=== PATIENT | male | born 1995 | race Caucasian/White ===

== ENCOUNTER 2017-03-29 09:13 | Emergency (ER) | payer BC, OTHER ==
[~2017-03-29] VITALS: Ht 182.9 cm; Wt 72.5 kg
[2017-03-29 09:13] VITALS: Ht 182.9 cm; Wt 72.5 kg
--- NOTE | 2017-03-29 09:39 | ERD ---
ER Documentation Chief Complaint Date/Time DATE: 03/29/17 TIME: 09:36 Chief Complaint Complains of headache HPI 21 yo male comes emergency department with a headache for the past 6 days. Patient states that it is a throbbing headache, worse when he is standing, associated with lightheadedness at the top of his head, and he has had subjective fevers at home. Headache has been intermittent, it did improve 2 days ago, and returned today. He has been taking Advil, Excedrin as well as NyQuil for his pain. Patient denies any head injuries. He states he has had myalgias. No blurry vision, no nausea, vomiting, paresthesias, weakness. Denies neck stiffness. No vomiting, diarrhea or URI symptoms. He denies recent travel. ROS All systems reviewed and are negative except as per history of present illness. Medications Home Meds Active Scripts Tramadol HCl (Tramadol HCl) 50 Mg Tablet, 50 MG PO Q4 Y for PAIN, #20 TAB Prov:LAINEY SERRATO PA-C 03/29/17 Allergies Allergies: Coded Allergies: No Known Allergy (Unverified , 09/03/14) PMhx/Soc Medical and Surgical Hx: pt denies Medical Hx, pt denies Surgical Hx Hx Alcohol Use: No Hx Substance Use: No Hx Tobacco Use: No Physical Exam Vitals Vital Signs Date Time Temp Pulse Resp B/P Pulse Ox O2 Delivery O2 Flow Rate FiO2 03/29/17 09:13 93.0 85 20 125/90 97 Physical Exam General: Well-developed, well-nourished. The patient appears in no acute distress. HEENT: Head is normocephalic, atraumatic. No scleral icterus. Pupils are equal , round, and reactive. Oral mucous membranes are moist. No pharyngeal erythema. Neck: Supple. Nontender. Lungs: Clear to auscultation. Normal air movement. Heart: Regular rate and rhythm. S1 and S2 are normal. No murmurs, gallops, or rubs. Abdomen: Soft, nontender, nondistended. Bowel sounds are normoactive. Extremities: No clubbing or cyanosis. Normal pulses. Moving extremities x 4. No weakness. Neuro: M/S: Alert and oriented Face: EOMI, CN II-XII grossly intact Motor: Normal strength throughout Sensation: Normal sensation throughout Speech: Normal Cerebel: Normal coordination Normal gait Normal finger to nose DTR: 2+ and symmetric upper/lower extremities. Skin: Normal turgor. No rash or lesions. Result Diagram: 03/29/17 0947 03/29/17 0947 Results 24 hrs Laboratory Tests Test 03/29/17 09:47 03/29/17 11:10 White Blood Count 4.410^3/ul Red Blood Count 5.1310^6/ul Hemoglobin 15.8g/dl Hematocrit 44.3% Mean Corpuscular Volume 86.4fl Mean Corpuscular Hemoglobin 30.8pg Mean Corpuscular Hemoglobin Concent 35.7g/dl Red Cell Distribution Width 11.9% Platelet Count 28314^3/UL Mean Platelet Volume 10.2fl Neutrophils % % Lymphocytes % % Monocytes % % Neutrophils # 10^3/ul Lymphocytes # 10^3/ul Monocytes # 10^3/ul Sodium Level 141mmol/L Potassium Level 4.0mmol/L Chloride Level 104mmol/L Carbon Dioxide Level 29mmol/L Anion Gap 12 Blood Urea Nitrogen 14mg/dl Creatinine 1.05mg/dl Glucose Level 94mg/dl Calcium Level 9.3mg/dl Total Bilirubin 0.8mg/dl Direct Bilirubin 0.00mg/dl Indirect Bilirubin 0.8mg/dl Aspartate Amino Transf (AST/SGOT) 77IU/L Alanine Aminotransferase (ALT/SGPT) 77IU/L Alkaline Phosphatase 66IU/L Total Protein 8.4g/dl Albumin 5.1g/dl Globulin 3.30g/dl Albumin/Globulin Ratio 1.54 Urine Color YELLOW Urine Clarity CLEAR Urine pH 6.0 Urine Specific [place] 1.020 Urine Ketones NEGATIVE Urine Nitrite NEGATIVE Urine Bilirubin 1+ Urine Ictotest NEGATIVE Urine Urobilinogen 1.0 E.U./dL Urine Leukocyte Esterase NEGATIVE Urine Microscopic RBC 0-2/HPF Urine Microscopic WBC 0-2/HPF Urine Epithelial Cells RARE Urine Bacteria FEW Urine Mucus FEW Urine Hemoglobin TRACE Urine Glucose NEGATIVE% Urine Total Protein 1+ Current Medications Medications (Trade) Dose Ordered Sig/Sarah Route PRN Reason Start Time Stop Time Status Last Admin Dose Admin Tramadol HCl (Ultram) 50 mg ONCE ONCE PO 03/29/17 10:00 03/29/17 10:01 DC 03/29/17 09:45 Patient: JOSÉ LOVELL : 1995 Age: 21 Sex: M MR #: [id number] DOS: 03/29/17 1141 Ordering MD: LAINEY SERRATO PA-C Location: [facility] Room/Bed: PROCEDURE: US Abdomen. CLINICAL INDICATION: Elevated LFTs TECHNIQUE: Multiple real-time images were acquired of the patient's right upper quadrant abdomen and retroperitoneum utilizing a high resolution transducer. COMPARISON: None FINDINGS: The liver demonstrates normal echogenicity. The liver is normal in size and no focal solid lesions are seen. The liver measures 16.8 cm in length. The portal vein is patent with normal direction of flow. No intrahepatic biliary dilatation is seen. The gallbladder is contracted. No gallstones are identified within the gallbladder. There is no pericholecystic fluid or gallbladder wall thickening. The common bile duct measures 3 mm in maximal dimension. The visualized portions of the pancreas are unremarkable. The tail of the pancreas is not seen. No free fluid is identified. The right kidney is normal in size, and demonstrate normal echogenicity and cortical thickness. The right kidney measures 11.7 cm in long dimension. There is no evidence of hydronephrosis. There are no kidney stones. RPTAT: AA IMPRESSION: Contracted gallbladder with no evidence of gallstones. .Irving Kee MD, Date Time Electronically viewed and signed by .Irving Kee MD, MD on 03/29/2017 12: 23 .S/ PROCEDURE: CT Brain without contrast. CLINICAL INDICATION: 6-day history of headache. TECHNIQUE: A CT of the brain was performed on a GE [employer] 64-slice CT scanner utilizing axial imaging from the skull base through the vertex without IV contrast. Multiplanar reformatted images were made. Images were reviewed on a PACS workstation. The CTDIvol is 43.86 mGy and the DLP is 720.23 mGycm. One or the following dose reduction techniques were used: -Automated exposure control. -Adjustment of the mA and/or KV according to patient's size. -Use of iterative reconstruction technique. COMPARISON: None FINDINGS: There is no intracranial hemorrhage, mass effect, or midline shift. No extra- axial fluid collection is seen. The ventricles and sulci are normal in size and configuration. The density of the brain is normal, and the uribe white matter differentiation appears well-preserved. The visualized paranasal sinuses and osseous structures are grossly unremarkable. IMPRESSION: 1. No acute intracranial process identified. RPTAT: AACC Physician Kristy Date Time Electronically viewed and signed by Ga Bhatt Physician on 03/29/2017 11: 57 JH/ CC: LAINEY SERRATO PA-C Procedures/MDM 21-year-old male comes in with headache for approximately 6 days now, likely tension headache related to viral syndrome. He states that he is on a fevers and myalgias. Workup included labs, urine CT there is no evidence of leukocytosis, there is mild elevation of AST and ALT at 77, however no elevated bilirubin, no pancreatitis. CT of the head was performed given that patient has never had this headache before, and it was unremarkable. Bilateral ultrasound shows no evidence of liver masses, hepatic steatosis, gallstones. He was given tramadol emergency department with significant improvement of his pain. He was asked to rest, increase hydration, and a short course of tramadol be given. He is to recheck with a primary care doctor for any worsening or new symptoms. There are no signs of systemic infection, sepsis, meningitis, encephalitis. Departure Diagnosis: Primary Impression: Headache Condition: Good LAINEY SERRATO PA-C Mar 29, 2017 09:39
[2017-03-29] MEDS ORDERED: traMADol 50 MG TAB PO ONE (10:00)
[2017-03-29 10:18] LABS: ADD SCAN DIFF NO
[2017-03-29 10:37] LABS: HEMATOCRIT 44.3 % (42.0-52.0); HEMOGLOBIN 15.8 g/dl (14.0-18.0); MEAN CORPUSCULAR HEMOGLOBIN 30.8 pg (29.0-33.0); MEAN CORPUSCULAR HGB CONC 35.7 g/dl (32.0-37.0); MEAN CORPUSCULAR VOLUME 86.4 fl (72.0-104.0); MEAN PLATELET VOLUME 10.2 fl (7.4-10.4); PLATELET COUNT 124 10^3/UL (140-415); RED BLOOD COUNT 5.13 10^6/ul (4.70-6.10); RED CELL DISTRIBUTION WIDTH 11.9 % (11.5-14.5); WHITE BLOOD COUNT 4.4 10^3/ul (4.8-10.8)
[2017-03-29 10:56] LABS: ALBUMIN 5.1 g/dl (3.3-4.9); ALBUMIN/GLOBULIN RATIO 1.54; BILIRUBIN,INDIRECT 0.8 mg/dl (0-1.1); BILIRUBIN,TOTAL 0.8 mg/dl (0.2-1.3); CALCIUM 9.3 mg/dl (8.4-10.2); CREATININE 1.05 mg/dl (0.61-1.24); TOTAL PROTEIN 8.4 g/dl (6.1-8.1)
[2017-03-29 11:22] LABS: ADD UMIC YES; UR BILIRUBIN (Dip) 1+ (NEGATIVE); UR BLOOD (Dip) TRACE (NEGATIVE); UR CLARITY CLEAR (CLEAR); UR COLOR YELLOW (YELLOW); UR GLUCOSE (Dip) NEGATIVE (NEGATIVE); UR KETONES (Dip) NEGATIVE (NEGATIVE); UR LEUKOCYTE ESTERASE (Dip) NEGATIVE (NEGATIVE); UR NITRITE (Dip) NEGATIVE (NEGATIVE); UR TOTAL PROTEIN (Dip) 1+ (NEGATIVE); UR UROBILINOGEN (Dip) 1.0 E.U./dL (0.1-1.0)
[2017-03-29 11:43] LABS: UR BACTERIA FEW; URINE RBCS 0-2 /HPF (0)
[2017-03-29 11:44] LABS: ICTOTEST NEGATIVE (NEGATIVE); UR MUCUS FEW
--- NOTE | 2017-03-29 11:57 | RADRPT ---
PROCEDURE: CT Brain without contrast. CLINICAL INDICATION: 6-day history of headache. TECHNIQUE: A CT of the brain was performed on a [employer] 64-slice CT scanner utilizing axial imaging from the skull base through the vertex without IV contrast. Multiplanar reformatted images were made. Images were reviewed on a PACS workstation. The CTDIvol is 43.86 mGy and the DLP is 720 .23 mGycm. One or the following dose reduction techniques were used: -Automated exposure control. -Adjustment of the mA and/or KV according to patient's size. -Use of iterative reconstruction technique. COMPARISON: None FINDINGS: There is no intracranial hemorrhage, mass effect, or midline shift. No extra-axial fluid collection is seen. The ventricles and sulci are normal in size and configuration. The density of the brain is normal, and the uribe white matter differentiation appears well-preserved. The visualized paranasal sinuses and osseous structures are grossly unremarkable. IMPRESSION: 1. No acute intracranial process identified. RPTAT: AACC Physician Kristy Date Time Electronically viewed and signed by Physician Kristy on 03/29/2017 11:57 /
--- NOTE | 2017-03-29 12:23 | RADRPT ---
PROCEDURE: US Abdomen. CLINICAL INDICATION: Elevated LFTs TECHNIQUE: Multiple real-time images were acquired of the patient's right upper quadrant abdomen a nd retroperitoneum utilizing a high resolution transducer. COMPARISON: None FINDINGS: The liver demonstrates normal echogenicity. The liver is normal in size and no focal solid lesions are seen. The liver measures 16.8 cm in length. The portal vein is patent with normal direction of f low. No intrahepatic biliary dilatation is seen. The gallbladder is contracted. No gallstones are identified within the gallbladder. There is no pe richolecystic fluid or gallbladder wall thickening. The common bile duct measures 3 mm in maximal di mension. The visualized portions of the pancreas are unremarkable. The tail of the pancreas is not seen. No free fluid is identified. The right kidney is normal in size, and demonstrate normal echogenicity and cortical thickness. The right kidney measures 11.7 cm in long dimension. There is no evidence of hydronephrosis. There are no kidney stones. RPTAT: AA IMPRESSION: Contracted gallbladder with no evidence of gallstones. .Irving Kee MD, Date Time Electronically viewed and signed by .Irving Kee MD, MD on 03/29/2017 12:23 .S/
[2017-03-29] MEDS ORDERED: TRAM50TA2 PO (12:27)
[2017-03-29 12:46] LABS: EOSINOPHILS # 0.1 10^3/ul (0.0-0.5); MONOCYTE # 0.4 10^3/ul (0.3-0.9); NEUTROPHIL # 1.6 10^3/ul (1.6-7.5)
[2017-03-29 13:02] VITALS: BP 117/69; PULSE 75; RESP 19; TEMP 98.2
== END 2017-03-29 13:04 | disposition home or self-care (01) ==
LOC: FTE 09:13
DX: R51 Headache (principal)
CPT/HCPCS: 36415; 70450; 76705; 80053; 81001; 85025; Z7502; Z7610

== ENCOUNTER 2017-04-10 09:28 | Emergency (ER) | payer OTHER ==
[~2017-04-10] VITALS: Ht 180.3 cm; Wt 70.5 kg
[~2017-04-10 09:28] MED LIST: TRAM50TA2 PO
[2017-04-10 09:34] VITALS: Ht 180.3 cm; Wt 70.5 kg
[2017-04-10] MEDS ORDERED: AMO500 PO (09:49)
[2017-04-10] MEDS ORDERED: IBUP-1542 PO (09:49)
--- NOTE | 2017-04-10 10:39 | ERD ---
ER Documentation Chief Complaint Date/Time DATE: 04/10/17 TIME: 10:[address] since saturday HPI This is a 21-year-old male presenting to the emergency department complaining of a sore throat since Saturday. Patient states the pain is moderate to severe, increased with swallowing. patient states that it started off with a fever but he denies any current fever now. He denies cough. He denies taking any medications for this ROS All systems reviewed and are negative except as per history of present illness. Medications Home Meds Active Scripts Ibuprofen* (Ibuprofen*) 600 Mg Tablet, 600 MG PO Q6H, #30 TAB Prov:WELLINGTON POMPA PA-C 04/10/17 Amoxicillin* (Amoxicillin*) 500 Mg Cap, 500 MG PO BID, #20 CAP Prov:WELLINGTON POMPA PA-C 04/10/17 Tramadol HCl (Tramadol HCl) 50 Mg Tablet, 50 MG PO Q4 Y for PAIN, #20 TAB Prov:LAINEY SERRATO PA-C 03/29/17 Allergies Allergies: Coded Allergies: No Known Allergy (Unverified , 09/03/14) PMhx/Soc Medical and Surgical Hx: pt denies Medical Hx, pt denies Surgical Hx Hx Alcohol Use: No Hx Substance Use: No Hx Tobacco Use: No Physical Exam Vitals Vital Signs Date Time Temp Pulse Resp B/P Pulse Ox O2 Delivery O2 Flow Rate FiO2 04/10/17 09:34 98.9 99 15 126/81 97 Physical Exam GENERAL: well-developed/well-nourished, in no apparent distress, non-toxic appearing HEAD: NC/AT, no swelling noted in frontal or maxillary areas EARS: bilateral tympanic membrane is intact without erythema or effusion NARES: nares patent, rhinorrhea and congested THROAT: Oropharynx erythematous with tonsillar exudate EYES: Conjunctiva normal NECK: Mild cervical LAD PULM: CTA bilaterally, no rales, rhonchi, or wheezing heard CV: Normal S1S2, RRR, good capillary refill GI: Soft, non-distended, normal bowel sounds, non-tender BACK: No midline tenderness, no masses EXT No clubbing, cyanosis, or edema NEURO: Alert and Orientated SKIN: Intact, normal turgor PSYCH: Normal mood and mentation Procedures/MDM This is a 21-year-old male presenting to the emergency department with sore throat likely due to strep pharyngitis. On examination patient had mild cervical lymphadenopathy, absent cough, erythematous oropharynx with tonsillar exudates. Patient states that he has had a history of fever. According to clinical judgment and examination patient likely has strep pharyngitis. There was no evidence of Abhishek's angina, peritonsillar abscess, retropharyngeal abscess. Patient airways are intact. Prescription for amoxicillin ibuprofen was provided. Discussed return to the ER for any worsening symptoms. Patient understands and agrees with plan Departure Diagnosis: Primary Impression: Pharyngitis Condition: Stable Patient Instructions: Pharyngitis, Strep (Presumed) Additional Instructions: Take all medicines as directed. Return to this facility if you are not improving as expected. WELLINGTON POMPA PA-C Apr 10, 2017 10:39
== END 2017-04-10 10:01 | disposition home or self-care (01) ==
LOC: FTE 09:28
DX: J02.9 Acute pharyngitis, unspecified (principal)
CPT/HCPCS: 99283

== ENCOUNTER 2017-04-19 13:37 | Emergency (ER) | payer OTHER ==
[~2017-04-19] VITALS: Wt 70.5 kg
[~2017-04-19 13:37] MED LIST changes: +AMO500 PO; +IBUP-1542 PO
[2017-04-19] MEDS ORDERED: PRED50TA PO (14:22)
[2017-04-19] MEDS ORDERED: BEN25 PO (14:22)
--- NOTE | 2017-04-19 14:28 | ERD ---
ER Documentation Chief Complaint Date/Time DATE: 04/19/17 TIME: 14:24 Chief Complaint ALLERGTIC REACTION, PT ON AMOX X10 DAYS, NO SOB HPI This is a 21-year-old male who is currently being treated with amoxicillin for pharyngitis infection. Today's is 8th day. Since last night he developed a rash that is itchy all over his body. He feels much better as far as his throat goes. He does not have a fever. He has no nausea or vomiting. He has no difficulty breathing, eating, or speaking. He denies any new foods, soaps, or irritants he can think about. ROS All systems reviewed and are negative except as per history of present illness. Medications Home Meds Active Scripts Prednisone* (Prednisone*) 50 Mg Tablet, 50 MG PO DAILY, #5 TAB Prov:KAELA THOMPSON PA-C 04/19/17 Diphenhydramine Hcl* (Benadryl*) 25 Mg Cap, 25 MG PO Q6, #30 CAP Prov:KAELA THOMPSON PA-C 04/19/17 Ibuprofen* (Ibuprofen*) 600 Mg Tablet, 600 MG PO Q6H, #30 TAB Prov:WELLINGTON POMPA PA-C 04/10/17 Amoxicillin* (Amoxicillin*) 500 Mg Cap, 500 MG PO BID, #20 CAP Prov:WELLINGTON POMPA PA-C 04/10/17 Tramadol HCl (Tramadol HCl) 50 Mg Tablet, 50 MG PO Q4 Y for PAIN, #20 TAB Prov:LAINEY SERRATO PA-C 03/29/17 Allergies Allergies: Coded Allergies: No Known Allergy (Unverified , 09/03/14) PMhx/Soc Hx Alcohol Use: No Hx Substance Use: No Hx Tobacco Use: No FmHx Family History: No diabetes Physical Exam Vitals Vital Signs Date Time Temp Pulse Resp B/P Pulse Ox O2 Delivery O2 Flow Rate FiO2 04/19/17 13:40 97.6 93 17 130/81 98 Physical Exam General: well developed, well nourished, alert, nontoxic, no distress, eating chips in the exam room Head: normocephalic, atraumatic Neck: Supple, nontender, no lymphadenopathy, no midline tenderness Oropharynx: no tonsilar erythema or edema, uvula midline, no exudates, no kissing tonsils, no drooling Respiratory: Clear to auscaultation bilaterally, speaks in full sentences, no use of accesory muscles or labored breathing, no rales, ronchi, or wheezing Cardiovascular: RRR, No murmurs Back: no midline tenderness, no step offs or bony abnormalities, sensation to light touch in tact Extremities: moving all extremities normally, normal gait, no edema Skin:macular papular rash on bilateral upper extremities as well as chest wall and back, blanchable, no pustlues or vesicles, no erythema or warmth Procedures/MDM Patient developed rash after taking amoxicillin. He is already been on it for 8 days. Unclear whether the rash is secondary to allergic reaction to amoxicillin or something else. Start infection is much improved I recommend he discontinue taking the amoxicillin he was given prescription for Benadryl and a short course of prednisone. Recommended this patient follow up with her primary care doctor within 48 hours or return to the emergency room for any worsening of symptoms. However this time I do believe there is suitable for outpatient management. I answered all their questions and they agreed with the plan and were discharged home. Departure Diagnosis: Primary Impression: Rash Condition: Stable Patient Instructions: Self-Care for Skin Rashes, Allergic Reaction, Other ( General) Additional Instructions: Call your primary care doctor TOMORROW for an appointment during the next 1-2 days.See the doctor sooner or return here if your condition worsens before your appointment time. KAELA THOMPSON PA-C Apr 19, 2017 14:28
== END 2017-04-19 14:53 | disposition home or self-care (01) ==
LOC: FTE 13:37
DX: L27.0 Generalized skin eruption due to drugs and medicaments taken internally (principal); T36.0X5A Adverse effect of penicillins, initial encounter
CPT/HCPCS: 99283